=== PATIENT | female | born 1980 | race Caucasian/White ===

== ENCOUNTER 2017-02-17 18:54 | Emergency (ER) | payer MEDICAID ==
[~2017-02-17] VITALS: Ht 165.1 cm; Wt 90.5 kg
[~2017-02-17 18:54] MED LIST: BUPR300T PO; CLON0.5T PO; LEVO50TA4 PO; SPIR100T PO
[2017-02-17 18:59] VITALS: BP 161/96; PULSE 87; RESP 18; TEMP 98.8; O2SAT 96
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
[2017-02-17] MEDS ORDERED: CLON0.5T PO (19:37)
[2017-02-17 19:48] LABS: AUTOMATED NEUTROPHIL # 5.7 TH/MM3 (1.8-7.7); BASOPHIL # 0.1 TH/MM3 (0-0.2); BASOPHIL % 0.8 % (0.0-2.0); EOSINOPHIL # 0.1 TH/MM3 (0-0.4); EOSINOPHIL % 1.3 % (0.0-4.0); HEMATOCRIT 40.1 % (35.0-46.0); HEMO FLAGS DIFF FINAL; LYMPH % 34.6 % (9.0-44.0); LYMPHOCYTE # 3.6 TH/MM3 (1.0-4.8); MEAN CORPUSCULAR HEMOGLOBIN 33.7 PG (27.0-34.0); MEAN CORPUSCULAR HGB CONC 33.7 % (32.0-36.0); NEUT % 55.3 % (16.0-70.0); PLATELET COUNT 460 TH/MM3 (150-450); RED BLOOD COUNT 4.01 MIL/MM3 (4.00-5.30); RED CELL DISTRIBUTION WIDTH 17.3 % (11.6-17.2); WHITE BLOOD COUNT 10.4 TH/MM3 (4.0-11.0)
[2017-02-17 20:19] LABS: TOTAL BILIRUBIN ADULT 1.3 MG/DL (0.2-1.0)
[2017-02-17 22:50] LABS: ALT (GPT) 63 U/L (10-53)
[2017-02-17 22:58] LABS: AST (GOT) 82 U/L (15-37); BICARBONATE 29.6 MEQ/L (21.0-32.0); CHLORIDE 98 MEQ/L (98-107)
[2017-02-17 22:59] LABS: ANION GAP 10 MEQ/L (5-15); SODIUM (NA) 138 MEQ/L (136-145)
[2017-02-17 23:00] LABS: BLOOD UREA NITROGEN 7 MG/DL (7-18); GLOMERULAR FILTRATION RATE 81 ML/MIN (>89); POTASSIUM 3.5 MEQ/L (3.5-5.1)
[2017-02-17 23:01] LABS: ALKALINE PHOSPHATASE 111 U/L (45-117)
== END 2017-02-18 00:02 | disposition home or self-care (01) ==
LOC: NEPE 18:54
DX: F41.3 Other mixed anxiety disorders (principal); I10 Essential (primary) hypertension; E03.9 Hypothyroidism, unspecified
CPT/HCPCS: 80053; 84443; 84703; 85025; 99283